=== PATIENT | female | born 1970 | race Asian ===

== ENCOUNTER → 2016-08-22 | Outpatient (CLI) | payer MEDICAID | END | disposition home or self-care (01) | LOC: CFH 08:08 | PROVIDERS: ATTEND Nurse Practitioner | DX: Z12.31 Encounter for screening mammogram for malignant neoplasm of breast (principal) | CPT/HCPCS: G0202 ==

== ENCOUNTER 2017-12-31 20:58 | Emergency (ER) | payer MEDICAID, OTHER ==
[~2017-12-31] VITALS: Ht 149.9 cm; Wt 48.6 kg
[2017-12-31] MEDS ORDERED: ZIPRASIDONE 20 MG INJ IM ONE (22:00)
[2017-12-31] MEDS ORDERED: ACETAMINOPHEN 325 MG TABLET ONE (22:39)
[2017-12-31 22:45] VITALS: BP 133/79
[2017-12-31] MEDS ORDERED: ACETAMINOPHEN 325 MG TABLET PO ONE (23:00)
== END 2017-12-31 22:47 | disposition home or self-care (01) ==
LOC: ED 22:07
DX: H11.31 Conjunctival hemorrhage, right eye (principal)
CPT/HCPCS: 93005; 99283

== ENCOUNTER 2020-06-21 18:15 | Emergency (ER) | payer BC, OTHER ==
[~2020-06-21] VITALS: Ht 149.9 cm; Wt 47.7 kg
[2020-06-21 18:26] VITALS: BP 177/85
--- NOTE | 2020-06-21 19:18 | NUR ---
BELL PERSON: NOT IN LOBBY
--- NOTE | 2020-06-21 19:40 | NUR ---
LODGING MANAGER: NOT IN LOBBY
--- NOTE | 2020-06-21 20:15 | NUR ---
BOSTON CUTTER: NOT IN LOBBY
== END 2020-06-21 20:17 | disposition left against medical advice (07) ==
LOC: ED 20:00
DX: Z23 Encounter for immunization (principal)
CPT/HCPCS: 99281

== ENCOUNTER 2020-07-16 15:37 | Emergency (ER) | payer OTHER ==
[~2020-07-16] VITALS: Ht 180.3 cm; Wt 47.1 kg
--- NOTE | 2020-07-16 15:50 | NUR ---
PA AT BS
--- NOTE | 2020-07-16 15:53 | NUR ---
PT SITTING ON FAMILY DEMARIO AT BS. PT CHANGED INTO GOWN, MONITORS IN PLACE. CALL LIGHT WITHIN REACH
[2020-07-16] MEDS ORDERED: SODIUM CHLORIDE 0.9% 1,000ML IVBOLUS ONE (16:00)
[2020-07-16] MEDS ORDERED: DIPHENHYDRAMINE 50 MG/ML, 1ML IVPush ONE (16:00)
[2020-07-16] MEDS ORDERED: PROCHLORPERAZINE 5 MG/ML, 2ML IVPush ONE (16:00)
[2020-07-16] MEDS ORDERED: PROCHLORPERAZINE 5 MG/ML, 2ML ONE (16:06)
[2020-07-16] MEDS ORDERED: DIPHENHYDRAMINE 50 MG/ML, 1ML ONE (16:07)
[2020-07-16 16:51] VITALS: BP 148/82
--- NOTE | 2020-07-16 16:52 | NUR ---
Patient given discharge instructions and RX, they have confirmed that they understand the instructions. Patient ambulatory with steady gait.
== END 2020-07-16 16:55 | disposition home or self-care (01) ==
LOC: ED 16:42
DX: G43.001 Migraine without aura, not intractable, with status migrainosus (principal); H53.149 Visual discomfort, unspecified
CPT/HCPCS: 70450; 96361; 96374; 96375; 99284; J0780; J1200; J7030